=== PATIENT | male | born 1980 | race Caucasian/White ===

== ENCOUNTER 2022-12-12 11:45 | Emergency (ER) | payer MEDICARE, SELFPAY ==
[2022-12-12 12:24] VITALS: BP 146/84; PULSE 106; RESP 15; TEMP 37.9; O2SAT 96; BMI 31.2
--- NOTE | 2022-12-12 13:12 | W.ED.BACK ---
HPI - Back Pain/Injury General: Chief Complaint: Back Pain/Injury Stated Complaint: Lower back pain Time Seen by Provider: 12/12/22 13:03 History of Present Illness: Mr. Blank is a 42-year-old gentleman presenting the emergency department for back pain. [place] any known specific provoking injury. At about 2 AM he began having worsening pain which has been intractable since onset. Noted in the low back with some radiation around on the inside of the abdomen. No testicular pain or urinary symptoms. No saddle anesthesia or loss of control of bowel/bladder. Worse with movement though still present at rest. Denies new sensory changes. Does have a history of microdiscectomy approximately 5 years ago. No other specific changes in health, exacerbating, or alleviating factors identified. Onset (ago): hour(s) Timing: constant Severity: severe Location: lumbar spine Radiation: abdomen Associated symptoms: Reports no associated symptoms Review of Systems General: Reports: 10 or more systems reviewed and unremarkable except in HPI and below PFSH ED PFSH: Medical History (Updated 12/20/22 @ 00:01 by BINH Rudolph) No significant past medical history Surgical History (Updated 12/12/22 @ 13:27 by Trav Dinh MD) History of microdiscectomy Physical Exam Const: COMMON NORMALS: alert GENERAL APPEARANCE: cooperative and well developed HENMT: COMMON NORMALS: normocephalic and atraumatic HEAD & SCALP: normocephalic and atraumatic Eye: COMMON NORMALS: conjunctivae normal CONJUNCTIVA: Yes conjunctivae normal SCLERA: sclerae normal Neck/C-Spine: COMMON NORMALS: supple GENERAL: Yes trachea midline Resp: COMMON NORMALS: clear to auscultation bilaterally EFFORT & INSPECTION: Yes able to speak in complete sentences AUSCULTATION: clear to auscultation bilaterally Cardio: COMMON NORMALS: regular rate and regular rhythm RATE: regular rate RHYTHM: regular rhythm GI: COMMON NORMALS: Soft to palpation PALPATION: Yes Soft to palpation and No Tenderness to palpation present (GI) Back/Pelvis: LUMBAR SPINE/LOWER BACK: Yes lumbar spinal tenderness and Yes paraspinal muscle tenderness Extremity: GENERAL: Yes normal exam except as noted and No edema Neuro: COMMON NORMALS: moves all extremities SENSORIUM/ORIENTATION: Yes alert and No Orientation impaired Psych: COMMON NORMALS: mental status grossly normal and Normal thought process present THOUGHT PROCESS: Normal thought process present Course Vital Signs: Vital signs: Vital Signs Temperature 98.5 F 12/12/22 15:00 Pulse Rate 93 12/12/22 16:13 Respiratory Rate 16 12/12/22 16:11 Blood Pressure 142/79 12/12/22 16:13 Pulse Oximetry 96 12/12/22 16:13 Oxygen Delivery Me thod Room Air 12/12/22 16:13 MDM - Back Pain/Injury Medical Decision Making 42-year-old gentleman presenting with back pain. No red flag symptoms. Patient is nontoxic. Exam as above. Unremarkable hematologic panel. Mild dehydration on metabolic panel. Minimal elevation in CK not indicative of true rhabdomyolysis. No UTI. X-rays demonstrate degenerative changes however no acute pathology. Patient improved with multimodal approach to back pain. IV fluids given. The results of ED evaluation were discussed with the patient including prescriptions and/or symptomatic cares (if applicable) including appropriate and responsible use, followup plan, and return precautions. The patient verbalized understanding and felt safe for discharge. Medical Records I reviewed the patient's medical records. Labs I reviewed the patient's lab results. 12/12/22 13:54 12/12/22 13:54 Radiology Impressions Lumbar Spine X-Ray 12/12/22 14:57 IMPRESSION: No acute findings. Cervical Spine X-Ray 12/12/22 14:58 IMPRESSION: No acute findings. Laboratory Results WBC 5.7 10^3/uL (4.0-10.0) 12/12/22 13:54 RBC 4.98 10^6/uL (4.1-5.3) 12/12/22 13:54 Hgb 15.2 g/dL (11.7-16.6) 12/12/22 13:54 Hct 43.6 % (42.0-52.0) 12/12/22 13:54 MCV 87.6 fl (80-94) 12/12/22 13:54 MCH 30.5 pg (28.0-34.0) 12/12/22 13:54 MCHC 34.9 g/dL (30.0-36.0) 12/12/22 13:54 RDW 12.4 % (12.1-15.1) 12/12/22 13:54 Plt Count 148 10^3/cmm (130-400) 12/12/22 13:54 MPV 10.0 fL (7.4-10.4) 12/12/22 13:54 Neut % (Auto) 70.8 % 12/12/22 13:54 Lymph % (Auto) 18.7 % 12/12/22 13:54 [place] % (Auto) 9.6 % 12/12/22 13:54 Eos % (Auto) 0.3 % 12/12/22 13:54 Baso % (Auto) 0.3 % 12/12/22 13:54 Neut # (Auto) 4.05 10^3/uL (1.8-7.7) 12/12/22 13:54 Lymph # (Auto) 1.1 10^3/uL (0.8-4.8) 12/12/22 13:54 [place] # (Auto) 0.6 10^3/uL (0.2-0.9) 12/12/22 13:54 Eos # (Auto) 0.0 10^3/uL (0.0-0.8) 12/12/22 13:54 Baso # (Auto) 0.0 10^3/uL (0.0-0.1) 12/12/22 13:54 Nucleated RBC % (auto) 0 % 12/12/22 13:54 Nucleated RBCs # 0.0 /100WBC 12/12/22 13:54 Sodium 132 mmol/L (136-145) L 12/12/22 13:54 Potassium 3.5 mmol/L (3.5-5.1) 12/12/22 13:54 Chloride 100 mmol/L (98-107) 12/12/22 13:54 Carbon Dioxide 21 mmol/L (22-29) L 12/12/22 13:54 Anion Gap 14.5 (5-19) 12/12/22 13:54 BUN 10 mg/dL (6-20) 12/12/22 13:54 Creatinine 0.9 mg/dL (0.7-1.2) 12/12/22 13:54 GFR Calculation 91.7 mL/min (90-130) 12/12/22 13:54 Glucose 94 mg/dL (65-115) 12/12/22 13:54 Calculated Osmolality 273 mOsm/kg (285-295) L 12/12/22 13:54 Calcium 9.0 mg/dL (8.5-10.5) 12/12/22 13:54 Total Bilirubin 0.5 mg/dL (0.15-1.2) 12/12/22 13:54 AST 31 U/L (0-40) 12/12/22 13:54 ALT 39 U/L (0-41) 12/12/22 13:54 Alkaline Phosphatase 95 U/L (40-130) 12/12/22 13:54 Creatine Kinase 474 U/L (39-308) H* 12/12/22 13:54 Total Protein 7.1 g/dL (6.6-8.7) 12/12/22 13:54 Albumin 3.9 g/dL (3.5-5.2) 12/12/22 13:54 Globulin 3.2 g/dL (1.3-4.6) 12/12/22 13:54 Lipase 59 U/L (13-60) 12/12/22 13:54 Urine Color Straw (Yellow) 12/12/22 16:14 Urine Appearance Clear (CLEAR) 12/12/22 16:14 Urine pH 8 (5-7) H 12/12/22 16:14 Ur Specific [place] 1.015 (1.005-1.030) 12/12/22 16:14 Urine Protein Trace (Negative) 12/12/22 16:14 Urine Glucose (UA) Norm (Normal) 12/12/22 16:14 Urine Ketones 1+ (Negative) H 12/12/22 16:14 Urine Blood Trace (Negative) H 12/12/22 16:14 Urine Nitrate Negative (Negative) 12/12/22 16:14 Urine Bilirubin Neg (Negative) 12/12/22 16:14 Prot Sulfosalicylic Acd Negative (Negative) 12/12/22 16:14 Urine Urobilinogen Norm mg/dL (Negative) 12/12/22 16:14 Ur Leukocyte Esterase Negative (Negative) 12/12/22 16:14 Urine RBC Rare /hpf (0-2) 12/12/22 16:14 Urine WBC Rare /hpf (0-5) 12/12/22 16:14 Ur Squamous Epith Cells Rare /hpf (0-5) 12/12/22 16:14 Amorphous Sediment Not Reportable 12/12/22 16:14 Urine Bacteria Trace /hpf (NONE) 12/12/22 16:14 Discharge Plan Discharge Patient Disposition: Home Clinical Impression: Low back pain, Dehydration Condition: Stable Prescriptions: New oxycodone 5 mg tablet 5 mg PO Q4H PRN (Reason: pain) Qty: 10 0RF methocarbamol 750 mg tablet 750 mg PO Q8H PRN (Reason: back pain) Qty: 30 0RF No Action amoxicillin 500 mg tablet 500 mg PO Q12H Rx Instructions: for 7 days (rx filled 12/09/22) ibuprofen 200 mg Tablet 800 mg PO Q6H PRN (Reason: Pain) fluticasone propionate 50 mcg/actuation spray,suspension 2 spray INTRANASAL DAILY tadalafil 20 mg tablet 20 mg PO DAILY PRN (Reason: Erectile Dysfunction) Discharge Orders: Discharge ED (Routine); Ordered 12/12/22 Ordered By: Trav Dinh Discharge Diet: Usual diet Discharge Activity: Increase activity as tolerated Patient Instructions: Dehydration (ED), Acute Low Back Pain (ED), Opioid Safety Activity Restrictions/Additional Instructions: Thank you for visiting the emergency department. You were seen and evaluated for back pain. The exact cause of your symptoms is unclear however does not appear to need hospitalization at this time. You are found to have dehydration and mild evidence of muscle breakdown secondary to this. Please ensure that you are staying hydrated. You may use [id number] medications such as acetaminophen and ibuprofen for pain however please do not exceed the daily recommended dosage as listed on the packaging and please keep in mind that many namebrand medications contain the same active ingredients. Please avoid these medications if previously instructed to do so by another physician due to other underlying medical condition. I will prescribe oxycodone, steroids, muscle relaxer. Use oxycodone cautiously as discussed. Please follow-up with your primary care provider. Return for anything that you are concerned about and feel needs emergency department evaluation. 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
[2022-12-12 13:15] VITALS: BP 156/96; PULSE 104; RESP 18; O2SAT 99
[2022-12-12 14:06] LABS: Basophils % 0.3 %; Eosinophils % 0.3 %; Hematocrit 43.6 % (42.0-52.0); Hemoglobin 15.2 g/dL (11.7-16.6); Lymphocytes # 1.1 10^3/uL (0.8-4.8); Lymphocytes % 18.7 %; Mean Corpuscular HGB Conc 34.9 g/dL (30.0-36.0); Mean Corpuscular Hemoglobin 30.5 pg (28.0-34.0); Mean Corpuscular Volume 87.6 fl (80-94); Monocytes # 0.6 10^3/uL (0.2-0.9); Monocytes % 9.6 %; Neutrophils # 4.05 10^3/uL (1.8-7.7); Neutrophils % 70.8 %; Nucleated Red Blood Cells % 0 %; Platelet Count 148 10^3/cmm (130-400); Red Blood Count 4.98 10^6/uL (4.1-5.3); Red Cell Distribution Width 12.4 % (12.1-15.1); White Blood Count 5.7 10^3/uL (4.0-10.0)
[2022-12-12] MEDS: diazePAM 2 mg Tablet PO (14:14)
[2022-12-12] MEDS: morphine 4 mg/mL SDV 1 mL IVP ×2 (14:14→16:11)
[2022-12-12] MEDS: ketorolac 30 mg/mL INJ 15 MG IVP (14:14)
[2022-12-12] MEDS: sodium chloride 0.9% 1,000 ML 999 ML IV ×2 (14:17→16:09)
[2022-12-12 14:31] LABS: Alanine Aminotransferase 39 U/L (0-41); Albumin Level 3.9 g/dL (3.5-5.2); Alkaline Phosphatase 95 U/L (40-130); Anion Gap 14.5 (5-19); Aspartate Amino Transferase 31 U/L (0-40); Blood Urea Nitrogen 10 mg/dL (6-20); Carbon Dioxide 21 mmol/L (22-29); Chloride 100 mmol/L (98-107); Globulin 3.2 g/dL (1.3-4.6); Glomerular Filtration Rate 91.7 mL/min (90-130); Glucose 94 mg/dL (65-115); Lipase 59 U/L (13-60); Osmolality Calculated 273 mOsm/kg (285-295); Potassium 3.5 mmol/L (3.5-5.1); Sodium 132 mmol/L (136-145); Total Bilirubin 0.5 mg/dL (0.15-1.2); Total Protein 7.1 g/dL (6.6-8.7)
[2022-12-12 14:48] LABS: Creatine Phosphokinase 474 U/L (39-308)
--- NOTE | 2022-12-12 14:57 | XRR_ITS ---
PROCEDURE INFORMATION: Exam: XR Lumbosacral Spine Exam date and time: 12/12/2022 3:19 PM Age: 42 years old Clinical indication: Pain; Lumbago with sciatica; Right; Additional info: Atraumatic low back pain TECHNIQUE: Imaging protocol: Radiologic exam of the lumbosacral spine. Views: 2 or 3 views. COMPARISON: No relevant prior studies available. FINDINGS: Bones/joints: There is disc space narrowing with moderate facet and bony endplate degenerative changes at L5-S1.. No acute fracture. Normal alignment. Soft tissues: Unremarkable. XR/XR lumbar spine 2-3V* [id number] IMPRESSION: No acute findings.
--- NOTE | 2022-12-12 14:58 | XRR_ITS ---
PROCEDURE INFORMATION: Exam: XR Cervical Spine Exam date and time: 12/12/2022 3:13 PM Age: 42 years old Clinical indication: Neck pain; Additional info: Atraumatic neck pain TECHNIQUE: Imaging protocol: Radiologic exam of the cervical spine. Views: 2 or 3 views. COMPARISON: No relevant prior studies available. FINDINGS: Bones/joints: Lateral view is oblique. No acute fracture. Normal alignment. Soft tissues: Unremarkable. XR/XR cervical spine 3V* [id number] IMPRESSION: No acute findings.
[2022-12-12 15:00] VITALS: BP 157/79; PULSE 103; TEMP 36.9; O2SAT 97
[2022-12-12 16:11] VITALS: RESP 16
[2022-12-12 16:13] VITALS: BP 142/79; PULSE 93; O2SAT 96
[2022-12-12 16:46] LABS: Add Urine Microscopic? YES; Bilirubin Urine Neg (Negative); Blood Urine Trace (Negative); Glucose Urine UA Norm (Normal); Ketones Urine 1+ (Negative); Leukocyte Esterase Urine Negative (Negative); Nitrate Urine Negative (Negative); Protein Urine Trace (Negative); RBC Urine RARE /hpf (0-2); Specific Gravity, Urine 1.015 (1.005-1.030); Squamous Epithelial Cell Urine RARE /hpf (0-5); Sulfosalicylic Acid Urine Negative (Negative); Urine Appearance Clear (CLEAR); Urine Color Straw (Yellow); Urobilinogen Urine Norm (Negative); WBC Urine RARE /hpf (0-5); pH Urine 8 (5-7)
[2022-12-12 16:47] LABS: Add Urine Culture? No; Bacteria Urine TRACE /hpf
== END 2022-12-12 17:20 | disposition home or self-care (01) ==
PROVIDERS: Emergency Provider Emergency Medicine
DX: M54.50 Low back pain, unspecified (principal); E86.0 Dehydration
CPT/HCPCS: 72040; 72100; 80053; 81001; 82550; 83690; 85025; 96361; 96374; 96375; 96376; 99285; J1885; J2270; J7030

== ENCOUNTER → 2023-03-01 13:55 | Outpatient (BNVA) | payer MEDICARE, SELFPAY | PROVIDERS: PCP Registered Nurse; Referring Provider Registered Nurse; Visit Provider Orthopaedic Surgery | DX: M25.551 Pain in right hip; M51.26 Other intervertebral disc displacement, lumbar region; M48.062 Spinal stenosis, lumbar region with neurogenic claudication | CPT/HCPCS: 72100; 73502; 99204 ==